=== PATIENT | male | born 2000 | race Hispanic/Latino ===

== ENCOUNTER 2022-03-20 19:59 | Emergency (ER) | payer SELFPAY ==
[2022-03-20] VITALS (10 sets, daily range): BP systolic 108–126; BP diastolic 61–94; PULSE 66–86; RESP 16–24; TEMP 36.3; O2SAT 93–100
--- NOTE | ~2022-03-20 | XR_ITS ---
EXAMINATION: XR chest 2V DATE: 03/20/2022 21:07 INDICATION: Chest pain TECHNIQUE: PA and lateral views of the chest are obtained. COMPARISON: None available FINDINGS: The lungs are free of acute opacities. No pleural effusion or pneumothorax. The cardiomedia stinal silhouette is normal. The visualized bones and soft tissues are unremarkable. IMPRESSION: 1. No acute cardiopulmonary abnormality. Reviewed, dictated and finalized at location F.
--- NOTE | 2022-03-20 20:07 | ECG_ITS ---
Measurements Intervals [place] Rate: 75 P: 80 [place]: 160 QRS: 76 QRSD: 106 T: 74 QT: 345 QTc: 387 Interpretive Statements SINUS RHYTHM POSSIBLE LEFT ATRIAL ENLARGEMENT INCOMPLETE RIGHT BUNDLE BRANCH BLOCK BORDERLINE ECG NO PREVIOUS ECG AVAILABLE FOR COMPARISON Electronically Signed On 03-21-2022 15:13:02 CDT by Tejas Gallardo M.D.
--- NOTE | 2022-03-20 20:45 | ED.CHESTPAIN ---
HPI - Chest Pain General Chief Complaint: Chest Pain <CHARLIE Polanco Last Filed: 03/20/22 22:37> Stated Complaint: chest pain <CHARLIE Polanco Last Filed: 03/20/22 22:37> Time Seen by Provider: 03/20/22 20:32 <CHARLIE Polanco Last Filed: 03/20/22 22:37> History of Present Illness HPI narrative: Patient is a 21-year-old Hungarian-speaking male here for evaluation of chest pain over the past day and a half. Patient states that the pain is there all the time but is worse with deep breaths. States that he had an accident where he had some trauma to the chest when he was younger, states that he will intermittently get a sharp pain in the center of her chest since then. Today's pain is worse than usual which prompted his ED evaluation. He has not taken any medication for his pain. Additionally notes a cough and posttussive nausea but denies any shortness of breath, leg swelling, fevers or chills, hemoptysis, vomiting. <CHARLIE Polanco Last Filed: 03/20/22 22:37> Related Data Allergies/Adverse Reactions: Allergies Allergy/AdvReac Type Severity Reaction Status Date / Time No Known Allergies Allergy Verified 03/20/22 20:23 <CHARLIE Polanco Last Filed: 03/20/22 22:37> Review of Systems Review of Systems: Gen.: Denies fevers or chills Eyes: Denies eye pain or visual change ENT: Denies congestion Respiratory: Reports cough. Denies shortness of breath CV: Reports chest pain. Denies palpitations GI: Reports nausea. Denies abdominal pain, emesis or diarrhea denies burning, urgency, frequency or hematuria Musculoskeletal: Denies back pain or muscle pain Neuro: Denies numbness, tingling, weakness or focal weakness Skin: Denies rash Except as documented, all other systems reviewed and negative <CHARLIE Polanco Last Filed: 03/20/22 22:37> Exam Narrative: APPEARANCE: Well appearing, no pain in distress, well-nourished. Head: Normocephalic and atraumatic. EYES: PERRLA/EOMI, conjunctivae clear NOSE: No nasal drainage EARS: External ear normal in appearance THROAT: Oropharynx is clear. Mucous membranes are moist. NECK: Supple. No adenopathy, no masses. RESPIRATORY: Airway patent, respirations nonlabored. Clear to auscultation bilaterally, no rales, rhonchi, wheezing. CARDIOVASCULAR: Regular rate and rhythm without murmurs, rubs, or gallops. ABDOMINAL: Normoactive bowel sounds. Soft, nontender, nondistended. No rebound tenderness or guarding. MUSCULOSKELETAL: Reproducible chest pain to palpation of the center of his chest. Extremities are warm and well-perfused. Moves all extremities well. No edema. NEURO: Normal speech. No focal neurologic deficits. SKIN: Skin is warm and dry. No rashes. PSYCHIATRIC: Normal affect/mood. <Fariba Bray PA-C - Last Filed: 03/20/22 22:37> Course EXCAVATING MACHINE OPERATOR/PA Physician Supervision For this patient encounter, I reviewed the EXCAVATING MACHINE OPERATOR or PA documentation, treatment plan, and medical decision making. I was available for consultation as needed. <Ana Maria Frey MD - Last Filed: 03/28/22 17:38> Vital Signs Vital signs: Vital Signs Temperature 97.4 F L 03/20/22 20:15 Pulse Rate 86 03/20/22 20:15 Respiratory Rate 16 03/20/22 20:15 Blood Pressure 108/94 H 03/20/22 20:15 Pulse Oximetry 93 03/20/22 20:15 Oxygen Delivery Room Air 03/20/22 20:15 Temperature 97.4 F L 03/20/22 20:15 Pulse Rate 69 03/20/22 22:04 Respiratory Rate 18 03/20/22 22:04 Blood Pressure 125/61 03/20/22 22:04 Pulse Oximetry 99 03/20/22 22:04 Oxygen Delivery Room Air 03/20/22 20:41 <Fariba Bray PA-C - Last Filed: 03/20/22 22:37> Vital Signs Temperature 97.4 F L 03/20/22 20:15 Pulse Rate 86 03/20/22 20:15 Respiratory Rate 16 03/20/22 20:15 Blood Pressure 108/94 H 03/20/22 20:15 Pulse Oximetry 93 03/20/22 20:15 Oxygen Delivery Room Air
[2022-03-20 21:11] LABS: Basophils Percent Auto 0.3 % (0.2-1.2); Eosinophils Absolute Auto 0.2 K/mm3 (0-0.3); Hematocrit 42.4 % (42.0-52.0); Hemoglobin 14.6 g/dL (14.0-18.0); Immature Granulocyte Absolute 0.04 K/mm3 (0.00-0.031); Immature Granulocyte Percent A 0.4 % (0-0.5); Lymphocytes Absolute Auto 0.83 K/mm3 (0.9-3.2); Lymphocytes Percent Auto 8.6 % (18.3-44.2); Mean Corpuscular HGB Conc 34.4 g/dl (32-36); Mean Corpuscular Hemoglobin 30.5 pg (26-34); Mean Corpuscular Volume 88.7 fl (80-100); Mean Platelet Volume 8.7 fl (7.4-10.4); Monocytes Absolute Auto 0.6 K/mm3 (0.1-0.6); Monocytes Percent Auto 6.1 % (2.6-8.5); Neutrophils Percent Auto 82.6 % (45.5-73.1); Platelet Count Result 254 k/mm3 (150-375); Red Blood Count 4.78 M/mm3 (4.6-6.20); Red Cell Distribution Width 12.8 % (11.5-14.5); White Blood Count 9.7 K/mm3 (4.5-10.0)
[2022-03-20 21:20] LABS: INR 1.1; Prothrombin Time 13.6 Seconds (11.1-14.7)
[2022-03-20 21:22] LABS: Alanine Aminotransferase 34 U/L (6-50); Albumin Level 5.1 g/dL (3.5-5.1); Alkaline Phosphatase 101 U/L (38-126); Anion Gap 12 mmol/L (8-16); Aspartate Amino Transferase 43 U/L (17-59); Bilirubin,Total 0.5 mg/dL (0.2-1.3); Blood Urea Nitrogen 15 mg/dL (9-20); Calcium 9.4 mg/dL (8.4-10.2); Carbon Dioxide 26 mmol/L (22-30); Chloride 100 mmol/L (98-107); Estimated CRCL calculation 104 ml/min; Estimated Glomerular Filt Rate > 60; Glucose 104 mg/dL (65-110); Lipase 75 U/L (23-300); Sodium 138 mmol/L (137-145)
[2022-03-20 21:33] LABS: Troponin I < 0.012 ng/mL (0.000-0.034)
[2022-03-20] MEDS: KETOROLAC 30 MG/ML VIAL (*BKC) IM (22:01)
== END 2022-03-20 22:04 | disposition home or self-care (01) ==
PROVIDERS: Emergency Provider Emergency Medicine
DX: R07.89 Other chest pain (principal); I45.10 Unspecified right bundle-branch block; R94.31 Abnormal electrocardiogram [ECG] [EKG]
CPT/HCPCS: 36415; 71046; 80053; 83690; 84484; 85025; 85610; 85730; 93005; 96372; 99284; J1885